=== PATIENT | female | born 1955 | race African-American/Black ===

== ENCOUNTER 2018-08-02 08:59 | Inpatient (IN) | payer MEDICAID ==
[~2018-08-02] VITALS: Ht 175.3 cm; Wt 172.7 kg
--- NOTE | ~2018-08-02 | MORECARE ---
CASE MANAGEMENT DISCHARGE SUMMARY PATIENT: AGUS MADRIGAL UNIT: [id number] ADM DATE: 08/03/18 AGE: 62 : 55 SEX: F ROOM/BED: D.1208 AUTHOR: PEGGY HILL PHYSICIAN: REFERRING PHYSICIAN: LISA OSCAR DO DATE OF SERVICE: 08/07/18 Discharge Plan Patient Name: AGUS MADRIGAL [facility] [facility] 1955 Planned Disposition: Home Anticipated Discharge Date: Discharge Date: 08/07/2018 Expected LOS: Initial Reviewer: [email or web address] Initial Review Date: 08/02/2018 Generated: 08/07/18 6:03 pm External Providers [facility] Next Contact Date: Service Request Date: Service Type: Resolution: Reviewer: Comments: Patient Name: AGUS MADRIGAL Page [id number] at 1703 All edits/amendments must be made on the electronic document DICTATION DATE: 08/07/181701 PARACHUTE MANUFACTURING SUPERVISOR: SARA 08/07/181701 RPT#: [id number] DC DATE:08/07/18 STATUS: DIS IN [facility] [address] [place] [address] END OF REPORT
--- NOTE | ~2018-08-02 | MORECARE ---
CASE MANAGEMENT DISCHARGE SUMMARY PATIENT: AGUS MADRIGAL UNIT: [id number] ADM DATE: 08/03/18 AGE: 62 : 55 SEX: F ROOM/BED: D.1208 AUTHOR: PEGGY HILL PHYSICIAN: REFERRING PHYSICIAN: LISA OSCAR DO DATE OF SERVICE: 08/07/18 Discharge Plan Patient Name: AGUS MADRIGAL Facility: [facility]:[place] : 1955 Planned Disposition: Home Anticipated Discharge Date: Discharge Date: 08/07/2018 Expected LOS: Initial Reviewer: [email or web address] Initial Review Date: 08/02/2018 Generated: 08/07/18 6:12 pm Comments DCP- Discharge Planning Updated by [email or web address]: Torri More on 08/07/18 4:[address] Patient Name: AGUS MADRIGAL Admission Status: ER Accout number: [id number] Admission Date: 08-03-2018 : 1955 Admission Diagnosis: Attending: LISA OSCAR Current LOS: 4 Anticipated DC Date: Planned Disposition: Home Primary Insurance: MEDICAID [place] Discharge Planning Comments: CM MET WITH PATIENT AT BEDSIDE. PATIENT STATES SHE PLANS ON RETURNING TO HER HOME. CM IS TO SET UP HOME 02. PATIENT STATES THAT SHE HAD 02 IN PAST BUT THAT HER INSURANCE COMPANY QUIT PAYING FOR IT AND SHE COULD NOT AFORD IT. AB OBTAINED FOR REFERAL FOR HOME 02. CM CONTACTED [facility] PATIENT [phone] SPOKE WITH KILLIAN FAXED RECORDS [phone]. KILLIAN STATED THAT THEY WOULD BRING PORTABLE 02 TO PATIENTS ROOM. PATIENT DENIED ANY OTHER DISCHARGE NEEDS AT THIS TIME. Train Clerk: Torri More Last DP export: 08/07/18 4:03 p Patient Name: AGUS MADRIGAL Page [id number] at 1712 All edits/amendments must be made on the electronic document DICTATION DATE: 08/07/181710 PRESCHOOL TEACHER: SARA 08/07/181710 RPT#: [id number] DC DATE:08/07/18 STATUS: DIS IN [address] [address] END OF REPORT
--- NOTE | ~2018-08-02 | MORECARE ---
CASE MANAGEMENT DISCHARGE SUMMARY PATIENT: AGUS MADRIGAL UNIT: [id number] ADM DATE: 08/03/18 AGE: 62 : 55 SEX: F ROOM/BED: D.1208 AUTHOR: PEGGY HILL PHYSICIAN: REFERRING PHYSICIAN: LISA OSCAR DO DATE OF SERVICE: 08/07/18 Discharge Plan Patient Name: AGUS MADRIGAL Facility: [facility]:[place] : 1955 Planned Disposition: Home Anticipated Discharge Date: Discharge Date: 08/07/2018 Expected LOS: Initial Reviewer: [email or web address] Initial Review Date: 08/02/2018 Generated: 08/07/18 6:22 pm Comments DCP- Discharge Planning Updated by [email or web address]: Torri More on 08/07/18 4:[address] Patient Name: AGUS MADRIGAL Admission Status: ER Accout number: [id number] Admission Date: 08-03-2018 : 1955 Admission Diagnosis: Attending: LISA OSCAR Current LOS: 4 Anticipated DC Date: Planned Disposition: Home Primary Insurance: MEDICAID [place] Discharge Planning Comments: CM MET WITH PATIENT AT BEDSIDE. PATIENT STATES SHE PLANS ON RETURNING TO HER HOME. CM IS TO SET UP HOME 02. PATIENT STATES THAT SHE HAD 02 IN PAST BUT THAT HER INSURANCE COMPANY QUIT PAYING FOR IT AND SHE COULD NOT AFORD IT. AB OBTAINED FOR REFERAL FOR HOME 02. CM CONTACTED [facility] PATIENT [phone] SPOKE WITH KILLIAN FAXED RECORDS [phone]. KILLIAN STATED THAT THEY WOULD BRING PORTABLE 02 TO PATIENTS ROOM. PATIENT DENIED ANY OTHER DISCHARGE NEEDS AT THIS TIME. Management Professional: oTrri More Last DP export: 08/07/18 4:12 p Patient Name: AGUS MADRIGAL Page [phone] at 1722 All edits/amendments must be made on the electronic document DICTATION DATE: 08/07/181721 CABLE ARMORER OPERATOR: SARA 08/07/181721 RPT#: [id number] DC DATE:08/07/18 STATUS: DIS IN [address] [address] END OF REPORT
[~2018-08-02 08:59] MED LIST: ASPIRIN 81 MG E81 MG PO; ATIVAN0.5 MG PO; ELAVIL10 MG PO; FISH OIL 1,0001 CA1 PO; ISOSORBIDE MONO30 M1 PO; LASIX40 MG PO; LISINOPRIL10 MG NG; MIRAPEX1 MG PO; MULTI-DAY VITAM1 TAB PO; PRILOSEC20 MG PO; ZETIA10 MG PO
[2018-08-02] MEDS ORDERED: COREG25 MG PO (09:08)
[2018-08-02 09:54] LABS: BASOPHILS 0.2 % (0-2); EOSINOPHILS 1.4 % (0-7); HEMATOCRIT 43.7 % (36.0-48.0); HEMOGLOBIN 13.5 g/dL (12-16); IMMATURE GRANULOCYTES 0.4 % (0-5); LYMPHOCYTES 29.7 % (15-50); MCH 30.6 pg (26.0-34.0); MCHC 30.9 g/dL (31.0-37.0); MCV 99.1 fL (80.0-100.0); MEAN PLATELET VOLUME 11.3 fL (7.4-10.4); MONOCYTES 7.3 % (2-11); PLATELET COUNT 190 10x3/uL (130-400); RBC 4.41 10x6/uL (4.00-5.40); WBC 5.6 10x3/uL (4.8-10.8)
[2018-08-02 10:08] LABS: ALBUMIN 3.1 g/dL (3.4-5.0); ANION GAP 9.5 mmol/L (8-16); BILIRUBIN - TOTAL 0.43 mg/dL (0.2-1.3); CALCIUM 8.8 mg/dL (8.5-10.1); CARBON DIOXIDE 35.7 mmol/L (21.0-32.0); CREATININE - SERUM 1.2 mg/dL (0.6-1.3); POTASSIUM - SERUM 4.2 mmol/L (3.5-5.1); PROTEIN - SERUM 6.6 g/dL (6.4-8.2)
[2018-08-02 13:30] VITALS: BP 134/79
[2018-08-02 15:37] VITALS: BP 147/93
[2018-08-02 18:30] VITALS: BP 138/77
[2018-08-02 22:07] VITALS: BP 117/79; BMI 56.2
[2018-08-03] VITALS (7 sets, daily range): BP systolic 91–114; BP diastolic 43–65; Ht 175.3 cm; Wt 172.7 kg
[2018-08-03 06:45] LABS: BASOPHILS 0.2 % (0-2); EOSINOPHILS 2.4 % (0-7); HEMATOCRIT 41.7 % (36.0-48.0); HEMOGLOBIN 12.4 g/dL (12-16); IMMATURE GRANULOCYTES 0.2 % (0-5); MCH 30.1 pg (26.0-34.0); MCHC 29.7 g/dL (31.0-37.0); MEAN PLATELET VOLUME 11.3 fL (7.4-10.4); MONOCYTES 10.5 % (2-11); NEUTROPHILS 58.7 % (40-80); PLATELET COUNT 195 10x3/uL (130-400); RBC 4.12 10x6/uL (4.00-5.40)
[2018-08-03 06:50] LABS: MCV 101.2 fL (80.0-100.0)
[2018-08-03 06:59] LABS: ANION GAP 7.6 mmol/L (8-16); CALCIUM 8.2 mg/dL (8.5-10.1); CREATININE - SERUM 1.2 mg/dL (0.6-1.3); POTASSIUM - SERUM 4.1 mmol/L (3.5-5.1)
[2018-08-03 07:22] LABS: CARBON DIOXIDE 40.5 mmol/L (21.0-32.0)
[2018-08-03 15:27] LABS: THYROID STIMULATING HORMONE 0.91 uIU/mL (0.36-3.74)
[2018-08-04 04:00] VITALS: BP 96/51
[2018-08-04 06:58] LABS: BASOPHILS 0.2 % (0-2); EOSINOPHILS 2.2 % (0-7); HEMATOCRIT 42.4 % (36.0-48.0); HEMOGLOBIN 12.7 g/dL (12-16); IMMATURE GRANULOCYTES 0.2 % (0-5); LYMPHOCYTES 36.3 % (15-50); MCH 30.4 pg (26.0-34.0); MCV 101.4 fL (80.0-100.0); MEAN PLATELET VOLUME 11.2 fL (7.4-10.4); MONOCYTES 9.9 % (2-11); NEUTROPHILS 51.2 % (40-80); PLATELET COUNT 188 10x3/uL (130-400); RBC 4.18 10x6/uL (4.00-5.40); RDW 16.1 % (11.5-14.5); WBC 5.3 10x3/uL (4.8-10.8)
[2018-08-04 07:19] LABS: ANION GAP 8.8 mmol/L (8-16); BILIRUBIN - TOTAL 0.43 mg/dL (0.2-1.3); CALCIUM 7.9 mg/dL (8.5-10.1); CARBON DIOXIDE 37.6 mmol/L (21.0-32.0); CREATININE - SERUM 1.1 mg/dL (0.6-1.3); POTASSIUM - SERUM 4.4 mmol/L (3.5-5.1); PROTEIN - SERUM 6.6 g/dL (6.4-8.2)
[2018-08-04 08:18] VITALS: BP 109/44
[2018-08-04 12:01] VITALS: BP 119/76
[2018-08-04 15:40] VITALS: BP 123/62
[2018-08-04 19:55] VITALS: BP 111/76
[2018-08-04 23:39] VITALS: BP 108/66
[2018-08-05 04:00] VITALS: BP 108/52
[2018-08-05 06:31] LABS: BASOPHILS 0.2 % (0-2); EOSINOPHILS 1.9 % (0-7); HEMATOCRIT 41.6 % (36.0-48.0); HEMOGLOBIN 12.7 g/dL (12-16); IMMATURE GRANULOCYTES 0.2 % (0-5); LYMPHOCYTES 34.9 % (15-50); MCH 30.7 pg (26.0-34.0); MCHC 30.5 g/dL (31.0-37.0); MCV 100.5 fL (80.0-100.0); MEAN PLATELET VOLUME 10.7 fL (7.4-10.4); MONOCYTES 8.8 % (2-11); PLATELET COUNT 176 10x3/uL (130-400); RBC 4.14 10x6/uL (4.00-5.40); RDW 15.9 % (11.5-14.5); WBC 5.8 10x3/uL (4.8-10.8)
[2018-08-05 07:16] LABS: ALBUMIN 2.9 g/dL (3.4-5.0); ANION GAP 9.2 mmol/L (8-16); BILIRUBIN - TOTAL 0.57 mg/dL (0.2-1.3); CALCIUM 8.3 mg/dL (8.5-10.1); CARBON DIOXIDE 37.2 mmol/L (21.0-32.0); POTASSIUM - SERUM 4.4 mmol/L (3.5-5.1); PROTEIN - SERUM 6.5 g/dL (6.4-8.2)
[2018-08-05 07:55] VITALS: BP 115/66
[2018-08-05 12:56] VITALS: BP 126/80
[2018-08-05 16:49] VITALS: BP 136/84
[2018-08-05 18:19] LABS: APPEARANCE CLEAR (CLEAR); BILIRUBIN NEGATIVE (NEGATIVE); COLOR STRAW (YELLOW); GLUCOSE NEGATIVE (NEGATIVE); KETONE NEGATIVE (NEGATIVE); NITRITE NEGATIVE (NEGATIVE); PROTEIN NEGATIVE (NEGATIVE); SPECIFIC GRAVITY 1.005 (1.005-1.020); UROBILINOGEN NORMAL (NORMAL)
[2018-08-05 21:34] VITALS: BP 152/93
[2018-08-06 05:00] VITALS: BP 152/71
[2018-08-06 06:13] LABS: BASOPHILS 0.2 % (0-2); EOSINOPHILS 2.1 % (0-7); HEMATOCRIT 44.1 % (36.0-48.0); HEMOGLOBIN 13.4 g/dL (12-16); IMMATURE GRANULOCYTES 0.2 % (0-5); LYMPHOCYTES 32.4 % (15-50); MCH 30.9 pg (26.0-34.0); MCHC 30.4 g/dL (31.0-37.0); MCV 101.6 fL (80.0-100.0); MEAN PLATELET VOLUME 11.6 fL (7.4-10.4); MONOCYTES 10.3 % (2-11); NEUTROPHILS 54.8 % (40-80); PLATELET COUNT 198 10x3/uL (130-400); RBC 4.34 10x6/uL (4.00-5.40); RDW 15.8 % (11.5-14.5); WBC 6.3 10x3/uL (4.8-10.8)
[2018-08-06 06:52] LABS: ALBUMIN 3.3 g/dL (3.4-5.0); ANION GAP 9.8 mmol/L (8-16); BILIRUBIN - TOTAL 0.61 mg/dL (0.2-1.3); CALCIUM 8.9 mg/dL (8.5-10.1); CREATININE - SERUM 1.1 mg/dL (0.6-1.3); POTASSIUM - SERUM 4.2 mmol/L (3.5-5.1); PROTEIN - SERUM 6.8 g/dL (6.4-8.2)
[2018-08-06 06:56] LABS: CARBON DIOXIDE 40.4 mmol/L (21.0-32.0)
[2018-08-06 08:34] VITALS: BP 127/74
[2018-08-06 12:05] VITALS: BP 105/73
[2018-08-06 19:00] VITALS: BP 116/64
[2018-08-07 01:58] VITALS: BP 112/60
[2018-08-07 02:25] VITALS: BP 112/60
[2018-08-07 05:09] VITALS: BP 113/62
[2018-08-07 06:25] LABS: BASOPHILS 0.2 % (0-2); EOSINOPHILS 3.5 % (0-7); HEMATOCRIT 43.5 % (36.0-48.0); IMMATURE GRANULOCYTES 0.2 % (0-5); LYMPHOCYTES 31.5 % (15-50); MCH 30.5 pg (26.0-34.0); MCHC 29.9 g/dL (31.0-37.0); MCV 102.1 fL (80.0-100.0); MEAN PLATELET VOLUME 11.1 fL (7.4-10.4); MONOCYTES 7.1 % (2-11); NEUTROPHILS 57.5 % (40-80); PLATELET COUNT 187 10x3/uL (130-400); RBC 4.26 10x6/uL (4.00-5.40); RDW 15.8 % (11.5-14.5); WBC 5.5 10x3/uL (4.8-10.8)
[2018-08-07 07:03] LABS: ALBUMIN 3.2 g/dL (3.4-5.0); BILIRUBIN - TOTAL 0.53 mg/dL (0.2-1.3); CALCIUM 9.1 mg/dL (8.5-10.1); PROTEIN - SERUM 6.5 g/dL (6.4-8.2)
[2018-08-07 07:46] LABS: ANION GAP 11.4 mmol/L (8-16); POTASSIUM - SERUM 4.4 mmol/L (3.5-5.1)
[2018-08-07 10:11] VITALS: BP 114/69
[2018-08-07] MEDS ORDERED: ASPIRIN EC81 M1 PO (10:15)
[2018-08-07] MEDS ORDERED: KLOR-CON 1010 MEQ PO (10:16)
[2018-08-07] MEDS ORDERED: LASIX80 MG PO (10:17)
[2018-08-07 12:09] VITALS: BP 93/52
== END 2018-08-07 14:34 | disposition home or self-care (01) | DRG 291 ==
LOC: D.ER 08:59 → OBSVTIME 14:28 → D.EDHOLD 14:28 → D.M3 14:28
PROVIDERS: Family Medicine; Internal Medicine Nephrology
DX: I11.0 Hypertensive heart disease with heart failure (principal); J96.21 Acute and chronic respiratory failure with hypoxia; Z68.43 Body mass index [BMI] 50.0-59.9, adult; I50.33 Acute on chronic diastolic (congestive) heart failure; E66.01 Morbid (severe) obesity due to excess calories; G89.29 Other chronic pain; M54.9 Dorsalgia, unspecified; F32.9 Major depressive disorder, single episode, unspecified

== ENCOUNTER → 2020-01-24 09:30 | Outpatient (CLI) | payer MEDICAID ==
[2018-08-03 12:16] VITALS: BMI 56.1
[~2020-01-24 09:30] MED LIST changes: +ASPIRIN EC81 M1 PO; +COREG25 MG PO; +KLOR-CON 1010 MEQ PO; +LASIX80 MG PO
== END | disposition home or self-care (01) ==
LOC: D.HCCECHO 09:30
PROVIDERS: ATTEND Internal Medicine Cardiovascular Disease
DX: R00.2 Palpitations (principal)